=== PATIENT | female | born 1990 | race Two or more races ===

== ENCOUNTER 2025-09-17 08:06 | Outpatient (CLI) | payer OTHER | END 2025-09-17 08:07 | disposition home or self-care (01) | LOC: PRENATAL 08:06 | PROVIDERS: ATTEND Obstetrics & Gynecology Maternal & Fetal Medicine | DX: O44.02 Complete placenta previa NOS or without hemorrhage, second trimester (principal); O34.219 Maternal care for unspecified type scar from previous cesarean delivery; O99.212 Obesity complicating pregnancy, second trimester; Z3A.19 19 weeks gestation of pregnancy ==

== ENCOUNTER → 2025-10-22 10:56 | Outpatient (CLI) | payer OTHER | END | disposition home or self-care (01) | LOC: PRENATAL 10:56 | PROVIDERS: ATTEND Obstetrics & Gynecology Maternal & Fetal Medicine | DX: O26.842 Uterine size-date discrepancy, second trimester (principal); O34.212 Maternal care for vertical scar from previous cesarean delivery; O99.212 Obesity complicating pregnancy, second trimester; Z3A.24 24 weeks gestation of pregnancy ==